=== PATIENT | male | born 1950 | race Caucasian/White ===

== ENCOUNTER 2017-01-03 06:55 | Inpatient (IN) ==
--- NOTE | 2016-12-29 10:17 | EKG Report ---
Test Performed on : 12/29/2016 10:00:45 AM Test Reason : PAT Blood Pressure : / mmHG Vent. Rate : 078 BPM Atrial Rate : 078 BPM P-R Int : 180 ms QRS Dur : 084 ms QT Int : 388 ms P-R-T Axes : 069 027 025 degrees QTc Int : 442 ms Normal sinus rhythm. Normal ECG No previous ECGs available Confirmed by Nolberto MCQUEEN, Mateusz Rodriguez ([id number]) on 12/31/2016 9:28:53 PM
[2016-12-29 10:21] LABS: MANUAL DIFF NEEDED? NO; URINE MICRO REVIEW NEEDED? NO; URINE SOURCE CLEAN CATCH
[2016-12-29 10:26] LABS: BASO% 0.3 % (0.0-0.8); EOS# 0.32 X1000 (0.0-0.7); EOS% 2.9 % (0.0-10.0); HEMATOCRIT 46.9 % (42.0-52.0); HEMOGLOBIN 16.2 g/dL (14.0-18.0); IMM GRAN# 0.02 X1000 (0.0-0.04); IMM GRAN% 0.2 % (0.0-0.5); LYMPH# 2.07 X1000 (1.2-3.4); LYMPH% 18.8 % (20.5-51.1); MCH 32.2 PG (27-31); MCHC 34.5 g/dL (33-37); MCV 93.2 FL (81-99); MONO# 1.02 X1000 (0.11-0.59); MONO% 9.3 % (1.7-9.3); MPV 10.6 FL (7.4-10.4); NEUT% 68.5 % (42.2-75.2); PLT 223 X1000 (130-400); RBC 5.03 XMIL (4.7-6.1)
[2016-12-29 10:33] LABS: BILIRUBIN URINE NEGATIVE (NEGATIVE); BLOOD URINE NEGATIVE (NEGATIVE); COLOR YELLOW; GLUCOSE URINE NEGATIVE (NEGATIVE); LEUKOCYTES URINE NEGATIVE (NEGATIVE); NITRITE URINE NEGATIVE (NEGATIVE); PH URINE 6.5; PROTEIN URINE NEGATIVE (NEGATIVE); SP GRAVITY URINE 1.015; TURBIDITY URINE CLEAR (CLEAR); UR EPITHELIAL CELLS <10 /HPF (<10); URINE BACTERIA NEGATIVE /HPF; URINE RBC <10 /HPF (<10); URINE WBC <10 /HPF (<10); UROBILINOGEN URINE NORMAL (NORMAL)
[2016-12-29 10:42] LABS: INR 0.95; PROTIME 9.9 Seconds (9.2-11.7); PTT 25.6 Seconds (22.0-36.0)
[2016-12-29 10:49] LABS: AGAP 11; BUN 18 mg/dL (8-22); CALCIUM 8.4 mg/dL (8.8-10.2); CHLORIDE 100 mmol/L (98-107); COSMO 278; POTASSIUM 4.8 mmol/L (3.5-5.1); SODIUM 138 mmol/L (136-145); TCO2 27 mmol/L (25-35)
[2017-01-03] MEDS ORDERED: PEPCID ONE (07:17)
[2017-01-03] MEDS ORDERED: LR 1,000 ML ONE ×2 (07:18→11:58)
[2017-01-03] MEDS ORDERED: CELEBREX ONE (07:18)
[2017-01-03] MEDS ORDERED: COLACE ONE (07:18)
[2017-01-03] MEDS ORDERED: LYRICA ONE (07:18)
[2017-01-03] MEDS ORDERED: REGLAN ONE (07:18)
[2017-01-03] MEDS ORDERED: KEFZOL 2 GM/D5W 2 GM/50 ML IVPB ONE (07:19)
[2017-01-03] MEDS ORDERED: DURAMORPH ONE (08:38)
[2017-01-03] MEDS ORDERED: TORADOL ONE (08:38)
[2017-01-03] MEDS ORDERED: MARCAINE 0.25% PF/EPI 1:200,000 ONE (08:39)
[2017-01-03] MEDS ORDERED: CYKLOKAPRON 1,000 MG/NS 1,000 MG/100 ML IVPB ONE ×2 (08:39→08:40)
[2017-01-03] MEDS ORDERED: VANCOMYCIN ONE ×2 (08:39→10:14)
[2017-01-03] MEDS ORDERED: SODIUM CHLORIDE 0.9% ONE (08:39)
[2017-01-03] MEDS ORDERED: NEOSPORIN G.U. IRRIGANT ONE (08:40)
[2017-01-03] MEDS ORDERED: EXPAREL 1.3% ONE (08:40)
[2017-01-03] MEDS ORDERED: CLAVE SECONDARY SET 11953 ONE (08:40)
[2017-01-03 10:11] LABS: URINE MICRO REVIEW NEEDED? NO; URINE SOURCE CATH
[2017-01-03 10:16] LABS: BILIRUBIN URINE NEGATIVE (NEGATIVE); BLOOD URINE NEGATIVE (NEGATIVE); COLOR YELLOW; GLUCOSE URINE NEGATIVE (NEGATIVE); LEUKOCYTES URINE NEGATIVE (NEGATIVE); NITRITE URINE NEGATIVE (NEGATIVE); PH URINE 5.5; PROTEIN URINE NEGATIVE (NEGATIVE); SP GRAVITY URINE 1.022; TURBIDITY URINE CLEAR (CLEAR); UROBILINOGEN URINE NORMAL (NORMAL)
[2017-01-03 10:19] LABS: UR EPITHELIAL CELLS <10 /HPF (<10); URINE BACTERIA NEGATIVE /HPF; URINE RBC <10 /HPF (<10); URINE WBC <10 /HPF (<10)
[2017-01-03] MEDS ORDERED: VERSED ONE (11:42)
[2017-01-03] MEDS ORDERED: FENTANYL ONE (11:42)
[2017-01-03] MEDS ORDERED: DIPRIVAN 1% ONE (11:43)
[2017-01-03] MEDS: MORPHINE ONE ×5 (11:49→12:20)
[2017-01-03] MEDS ORDERED: ZOFRAN ONE (11:58)
[2017-01-03] MEDS ORDERED: NORCURON ONE (11:58)
[2017-01-03] MEDS ORDERED: DECADRON ONE (11:58)
[2017-01-03] MEDS ORDERED: ROBINUL ONE (11:58)
[2017-01-03] MEDS ORDERED: QUELICIN (DOSE) ONE (11:58)
[2017-01-03] MEDS ORDERED: NEOSTIGMINE ONE (11:58)
[2017-01-03] MEDS ORDERED: SODIUM CHLORIDE 0.9% 20 ML ONE (11:58)
[2017-01-03] MEDS ORDERED: OFIRMEV 1000 MG/ISOTONIC SOLN 1,000 MG/100 ML BOTTLE ONE (11:58)
[2017-01-03] MEDS ORDERED: XYLOCAINE-MPF 2% ONE (11:58)
[2017-01-03] MEDS ORDERED: NS 1,000 ML ONE (12:01)
[2017-01-03] MEDS ORDERED: OXY IR PO PRN (12:30)
[2017-01-03] MEDS ORDERED: ZOFRAN IV PRN (12:30)
[2017-01-03] MEDS ORDERED: MILK OF MAGNESIA PO PRN (12:30)
[2017-01-03] MEDS ORDERED: MORPHINE IV PRN (12:30)
[2017-01-03] MEDS ORDERED: AMBIEN PO PRN (12:30)
[2017-01-03] MEDS: NS 1,000 ML IV SCH (13:00)
[2017-01-03] MEDS: ULTRAM PO SCH ×2 (13:15→22:24)
--- NOTE | 2017-01-03 16:47 | OPERATIVE NOTE ---
PROCEDURE DATE: 01/03/2017 PREOPERATIVE DIAGNOSIS: Right knee degenerative joint disease. POSTOPERATIVE DIAGNOSIS: Right knee degenerative joint disease. ANESTHESIA: Spinal. SURGEON: Nathan Miranda MD [employer]ER: KENAN Lau COMPLICATIONS: None. BLOOD LOSS: Minimal. TOURNIQUET TIME: Approximately an hour and a half. DESCRIPTION OF PROCEDURE: The patient was brought to the operative suite and placed in supine position. After satisfactory administration of spinal anesthesia, a well-padded tourniquet was placed on right proximal thigh. The right lower extremity was prepped and draped in usual sterile fashion. Leg was exsanguinated. Tourniquet insufflated to 350 torr. A longitudinal incision was made beginning at the superior pole of the patella and extended distally to the tibia tuberosity. Dissected sharply through the skin. Full-thickness skin flaps were developed and elevated medially and laterally. A medial arthrotomy was made with a vastus snip. The medial capsule was elevated off the medial tibial plateau. The prepatellar fat pad, ACL, PCL, medial meniscus, lateral meniscus were excised. A drill was entered and centered over the distal femur. An intramedullary guide was placed and cutting block was pinned in place and cut was made with oscillating saw. The femur was sized to a size 6. A size 6 cutting block was pinned in place. Anterior cuts, chamfer cuts, and posterior condylar cuts were made with oscillating saw. Marginal osteophytes removed with rongeur. A box cutting block was pinned in place. A box cut was made with a box osteotome and oscillating saw. Posterior condyle and osteophytes were removed with curved osteotome and rongeur. Attention then directed to the tibia. A drill was entered in the center of the tibia. An intramedullary guide was placed. Alignment checked with drop naomi, referencing off the anterior cortex of the tibia and the second ray of the foot, taking 2 mm off the low side the tibia, which in this case was medially. The articular surface of the tibial plateau was removed with oscillating saw. Marginal osteophytes removed with the rongeur. Flexion and extension gaps were checked and balanced at 12 mm. The tibia sized to a size 6. A size 6 guide was used for the fin punch. The tibial trial, femoral trial, and 12 mm articular insert were placed, taken through range of motion. Found to have excellent alignment, balancing, range of motion, and patellar tracking. The attention then directed to the patella and 9 mm of the articular surface of patella removed with oscillating saw. The patella sized to a size 32. A size 32 guide was used drill peg holes. The lateral facet was chamfered 30 to 45 degrees. Patella trial was placed, taken through range of motion found to have excellent patella tracking. All trials were then removed. The knee was copiously irrigated and dried, being certain all bone debris was removed. The tibial component, femoral component, and patellar component were cemented into place, excess cement being removed with a [place]. Once the cement hardened, excess cement was again removed with an osteotome. The knee was again copiously irrigated and dried, being certain all bone and cement debris were removed. A drain was placed exiting superolaterally and buried in the lateral gutter. The medial arthrotomy was closed with 0 Vicryl, skin edge approximated with 2- 0 Vicryl, skin was closed with skin carey, and a sterile dressing was applied. The patient tolerated the procedure well without complications. At the end the procedure, all counts correct x2. The patient was transferred to the recovery room in stable condition. cc: Nathan Miranda MD [facility]
[2017-01-03] MEDS: KEFZOL 2 GM/D5W 2 GM/50 ML IVPB IV SCH (18:00)
[2017-01-03] MEDS: LYRICA PO SCH (22:23)
[2017-01-03] MEDS: CELEBREX PO SCH (22:23)
[2017-01-03] MEDS: PERIDEX MT SCH (22:24)
[2017-01-03] MEDS: PRINIVIL PO SCH (22:24)
[2017-01-03] MEDS: TYLENOL PO SCH (22:24)
[2017-01-03] MEDS: COLACE PO SCH (22:24)
[2017-01-04] MEDS: NS 1,000 ML IV SCH (01:08)
[2017-01-04] MEDS: KEFZOL 2 GM/D5W 2 GM/50 ML IVPB IV SCH (01:08)
[2017-01-04] MEDS: ULTRAM PO SCH (05:06)
[2017-01-04] MEDS: TYLENOL PO SCH (05:07)
[2017-01-04] MEDS ORDERED: XARELTO PO SCH (06:00)
[2017-01-04 06:13] LABS: HEMATOCRIT 41.6 % (42.0-52.0); HEMOGLOBIN 13.9 g/dL (14.0-18.0)
[2017-01-04 06:31] LABS: AGAP 12; BUN 20 mg/dL (8-22); CALCIUM 7.9 mg/dL (8.8-10.2); CHLORIDE 100 mmol/L (98-107); COSMO 280; POTASSIUM 3.9 mmol/L (3.5-5.1); SODIUM 137 mmol/L (136-145); TCO2 25 mmol/L (25-35)
[2017-01-04] MEDS ORDERED: DECADRON IV ONE (09:00)
[2017-01-04] MEDS ORDERED: PEPCID PO SCH (09:00)
[2017-01-04] MEDS: PERIDEX MT SCH (10:23)
[2017-01-04] MEDS: COLACE PO SCH (10:25)
[2017-01-04] MEDS: LYRICA PO SCH (10:25)
[2017-01-04] MEDS: CELEBREX PO SCH (10:25)
[2017-01-04] MEDS: PRINIVIL PO SCH (10:25)
[2017-01-04 11:19] VITALS: BP 154/72
--- NOTE | 2017-01-05 01:17 | DISCHARGE SUMMARY ---
ADMISSION DATE: 01/03/2017 DISCHARGE DATE: 01/04/2017 DISCHARGE DIAGNOSIS: Right knee degenerative joint disease, status post right total knee arthroplasty. DISCHARGE MEDICATIONS: See discharge medication list. DISPOSITION: The patient is discharged home today with home health. Discharge instructions for total knee arthroplasty protocol. Instructed to return to see Dr. Miranda next . HOSPITAL COURSE: On the day of admission, the patient underwent a right total knee arthroplasty. His postoperative course was unremarkable. At discharge, he is afebrile, tolerating a regular diet, ambulating with physical therapy. His wounds are clean, dry, and intact without infection. He is discharged home with home health in stable condition with instructions to follow up as described above. Dictated by SELINA Thomas for Nathan Miranda MD cc: SELINA Thomas MD
== END 2017-01-04 12:46 | disposition home health service (06) ==
LOC: OR 06:55 → 4N 06:55 → OBSVTOIN 15:39
PROVIDERS: ADMIT Orthopaedic Surgery; ATTEND Orthopaedic Surgery